=== PATIENT | male | born 2000 | race Asian ===

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

== ENCOUNTER 2019-04-22 13:40 | Emergency (ER) | payer OTHER ==
[~2019-04-22] VITALS: Ht 180.3 cm; Wt 93.2 kg
[2019-04-22 15:16] LABS: INFLUENZA A AMPLIFICATION NEGATIVE (NEGATIVE); INFLUENZA B AMPLIFICATION NEGATIVE (NEGATIVE)
[2019-04-22 15:26] VITALS: BP 119/60
== END 2019-04-22 16:15 | disposition home or self-care (01) ==
LOC: M ED 13:40
DX: J06.9 Acute upper respiratory infection, unspecified (principal); F17.200 Nicotine dependence, unspecified, uncomplicated